=== PATIENT | female | born 1935 | race Caucasian/White ===

== ENCOUNTER 2018-06-30 18:49 | Inpatient (IN) | payer MEDICARE, OTHER ==
[~2018-06-30] VITALS: Ht 157.5 cm; Wt 53.1 kg
--- NOTE | 2018-06-30 19:05 | NUR ---
Patient bib pvt ambulance. Patient AAOx3. Patient speaks in complete sentences, speech is clear. Patient came in for medical clearance for mental health admission. Respiratory even and unlabored. No cardiovascular distress noted, all pulses palpable. No GI/Gu distress. Patient in bed at lowest position, side rails upx2, 2 relatives at bedside. Fall precautions implemented per protocol.
[2018-06-30] MEDS ORDERED: OMEP20TA5 PO (19:18)
[2018-06-30] MEDS ORDERED: ACYC400T PO (19:18)
[2018-06-30] MEDS ORDERED: ERGO2000 PO (19:18)
[2018-06-30] MEDS ORDERED: ACET-2154 PO (19:18)
[2018-06-30] MEDS ORDERED: FERR324T PO (19:18)
[2018-06-30] MEDS ORDERED: LEVO50TA8 PO (19:18)
[2018-06-30] MEDS ORDERED: QUET25TA PO (19:18)
[2018-06-30] MEDS ORDERED: FLUT16SP NS (19:18)
[2018-06-30] MEDS ORDERED: DONE10TA44 PO (19:18)
[2018-06-30] MEDS ORDERED: SACC250C9 PO (19:18)
[2018-06-30] MEDS ORDERED: MULT1TAB73 PO (19:18)
[2018-06-30] MEDS ORDERED: MELA5TAB PO (19:18)
[2018-06-30] MEDS ORDERED: MEMA10TA PO (19:18)
[2018-06-30] MEDS ORDERED: DOCU100C36 PO (19:18)
[2018-06-30] MEDS ORDERED: POLY17PO4 PO (19:18)
[2018-06-30] MEDS ORDERED: PSYL0.5211 PO (19:18)
[2018-06-30] MEDS ORDERED: ONDA4TAB10 PO (19:18)
[2018-06-30] MEDS ORDERED: SODI45SP6 NS (19:18)
[2018-06-30] MEDS ORDERED: ALBU18HF2 IH (19:18)
--- NOTE | 2018-06-30 19:21 | NUR ---
GRANT Barr. Placed call for Crisis Team, Rolando Valencia for evaluation.
--- NOTE | 2018-06-30 21:13 | NUR ---
Report given to Gisselle. Patient in stable condition for transfer.
[2018-06-30] MEDS ORDERED: MAGNESIUM HYDROXIDE 30 ML LIQUID UDC PO PRN (21:15)
[2018-06-30] MEDS ORDERED: MAG HYDROX/AL HYDROX/SIMETH 30 ML LIQUID UDC PO PRN (21:15)
[2018-06-30] MEDS ORDERED: TEMAZEPAM 7.5 MG CAPSULE PO PRN (21:15)
[2018-06-30] MEDS ORDERED: LORAZEPAM 1 MG TABLET PO PRN (21:15)
[2018-06-30] MEDS ORDERED: ACETAMINOPHEN 325 MG TABLET PO PRN (21:15)
--- NOTE | 2018-06-30 21:19 | NUR ---
Patient transfered to MHU, in stable condition.
[2018-06-30 21:32] VITALS: BP 140/76
--- NOTE | 2018-06-30 23:00 | NUR ---
ADMITTED 83 YEARS OLD FEMALE TO [facility] MHU ON A 5150 FOR GD. HOLD WILL END ON 07/03/18 AT 1999. PER HOLD, PATIENT LIVES IN AN ASSISTED LIVING FACILITY CALLED [facility]. SHE WAS TRANSPORTED TO [facility] D/T WORSENING DELUSION, PARANOID IDEATION AND DECLINED IN FOOD INTAKE. ONCE SHE WAS MEDICALLY CLEARED, SHE WAS TRANSPORTED TO [facility] ER FOR ADMISSION TO MHU. UPON ADMISSION, PATIENT WAS CALM AND PLEASANT; SHE WAS ACCOMPANIED BY ANAYELI CHIU WHO PROVIDED ADDITIONAL INFORMATION. FACE TO FACE ASSESSMENT WAS DONE, PATIENT NOTED A/O X 2, ABLE TO AMBULATE WITH STEADY GAIT AND ABLE TO MAKE HER NEEDS KNOWN. UPON INTERVIEW, PATIENT STATED THAT SHE IS HERE BECAUSE SHE HAS A BOYFRIEND THAT SHE IS PLANNING TO HIM BUT HER DAUGHTER DOES NOT BELIEVE HER AND SHE IS UPSET BECAUSE OF THAT. SHE STATED, "MY DAUGHTER TOLD ME THAT I AM TOO OLD TO AND THAT I DON'T HAVE A BOYFRIEND". PER ANAYELI CHIU, PATIENT STARTED WITH PARANOID IDEATION OF A BOYFRIEND AFTER THE WEDDING OF HER GRANDDAUGHTER BACK IN MAY AND IS GOTTEN WORSE. PATIENT REFLECTS WHAT IS ON THE HOLD. HEAD TO TOE ASSESSMENT DONE. MULTIPLE PURPLE DISCOLORATION NOTED IN BOTH ARMS AND RIGHT HAND POSTERIOR ASPECT. POSSIBLE BLOOD DRAWN. PT IS UNDER THE CARE OF DR MOREIRA. WILL CONTINUE TO MONITOR CLOSELY.
[2018-07-01 07:30] VITALS: BP 154/76
--- NOTE | 2018-07-01 12:48 | NUR ---
Initial Discharge Instructions: Patient is a current resident of [facility] [Address: [address], [place] [address]; ]. Spoke with patient's daughter, Sandy Russ ([phone]) who states she would like her mother to return there upon discharge. Per daughter, she is unsure if pt will need Memory Care unit upon discharge, but reports that they have a room reserved for her at [facility]. Spoke with RNMarlene at [facility] who states that the patient is welcome back upon discharge. Per Marlene, a Physician's Report and an in-person assessment must be completed prior to discharge. SW will continue to collaborate with pt, family, and MD regarding most appropriate discharge plans for the patient. SW will form a safe and proper discharge.
--- NOTE | 2018-07-01 14:45 | NUR ---
Gps/Cash Reconciliation Specialist- Patient threw thrash can towards the LIBRARY SERVICES COORDINATOR when she was trying to open the door from her room. Confused, trying to reorient patient, informed she is in the Hosp. (MHU).patient thinks she in in her home. Patient kept closing her door, discouraged from doing so. Patient wants her door closed because veryone comes to bother her per. pt. Monitored closely for safety and needs. Offered ativan 1 mg po, pt. refused, claimed she will not take any medication from the staff.
--- NOTE | 2018-07-01 15:44 | NUR ---
Gps/Lock And Dam Repairer- Patient remains in her room, sitting at the edge of the bed, encouraged participation in her group therapy, refused to get out of her room. Confused, reoriented to time and place.
[2018-07-01 16:00] VITALS: BP 117/72
[2018-07-01] MEDS ORDERED: LORAZEPAM 0.5 MG TABLET PO PRN (16:00)
[2018-07-01] MEDS ORDERED: ACYCLOVIR 400 MG TABLET PO SCH (17:45)
[2018-07-01] MEDS ORDERED: ALBUTEROL SULFATE 8 GM HFA.AER.AD IH PRN (17:45)
[2018-07-01] MEDS ORDERED: NORMAL SALINE NASAL 45 ML BOTTLE NS PRN (17:45)
[2018-07-01] MEDS ORDERED: ALBUTEROL SULFATE 2.5 MG/3 ML NEBU NEB PRN (18:00)
[2018-07-01] MEDS: FERROUS GLUCONATE 324 MG TABLET PO SCH (18:00)
--- NOTE | 2018-07-01 18:51 | NUR ---
Gps/Tnt Line Supervisor- Unable to administer routine Ferrous gluconate new order, not available in the unit, will follow up. Family in to visit. Daughter informed of the behavior this pm. , continue to monitor behavior.Instructed not to close her door.
--- NOTE | 2018-07-01 19:36 | NUR ---
Received patient lying in bed in room, calm. Noted per day shift nurse, patient has stayed in her room all day and refused to participate in group activities. Noted patient calm and interacts when talked to. Bed in low position, locked. Noise and lights subdued.
[2018-07-01 20:05] VITALS: BP 131/64
[2018-07-01] MEDS: MELATONIN 3 MG TABLET PO SCH (20:34)
[2018-07-01] MEDS: CULTURELLE CAPSULE PO SCH (20:34)
[2018-07-01] MEDS: ACYCLOVIR 200 MG CAPSULE PO SCH (20:36)
--- NOTE | 2018-07-02 05:38 | NUR ---
Patient slept well throughout the night. Patient pleasant upon approach compliant in taking medications and care. No complaints made. Attended all needs. Ensured safety and comfort.
[2018-07-02] MEDS: LEVOTHYROXINE SODIUM 50 MCG TABLET PO SCH (06:18)
[2018-07-02] MEDS: PANTOPRAZOLE SODIUM 40 MG TABLET.DR PO SCH (06:18)
[2018-07-02 07:27] LABS: BASOPHILS % (AUTO) 0.4 % (0.0-2.0); EOSINOPHILS # (AUTO) 0.1 K/uL (0.0-0.7); EOSINOPHILS % (AUTO) 1.4 % (0.0-7.0); HEMOGLOBIN 12.5 g/dL (10.9-14.3); LYMPHOCYTES # (AUTO) 0.9 K/uL (20.0-40.0); LYMPHOCYTES % (AUTO) 16.9 % (20.5-51.5); MEAN CORPUSCULAR HEMOGLOBIN 32.6 uug (24.7-32.8); MEAN CORPUSCULAR HGB CONC 34 g/dL (32.3-35.6); MEAN CORPUSCULAR VOLUME 96.7 fL (75.5-95.3); MONOCYTES % (AUTO) 18.7 % (0.0-11.0); NEUTROPHILS # (AUTO) 3.5 K/uL (1.8-8.9); NEUTROPHILS % (AUTO) 62.6 % (38.5-71.5); PLATELET COUNT (AUTO) 205 K/uL (179-408); RED BLOOD CELL COUNT(AUTO) 3.82 MIL/uL (3.63-4.92); WHITE BLOOD COUNT (AUTO) 5.5 K/uL (3.8-11.8)
[2018-07-02 07:30] VITALS: BP 106/63
[2018-07-02 07:35] LABS: CARBON DIOXIDE 27 mmol/L (21-32); CHLORIDE 102 mmol/L (98-107); CREATININE 0.8 mg/dL (0.6-1.3); GLUCOSE 89 mg/dL (74-106); POTASSIUM 3.9 mmol/L (3.5-5.1); UREA NITROGEN, BLOOD 20 mg/dL (7-18)
[2018-07-02] MEDS: FLUTICASONE PROP NASAL SPRAY 16 GM BOTTLE NS SCH (08:07)
[2018-07-02] MEDS: risperiDONE 0.5 MG TABLET PO SCH ×2 (08:07→20:00)
[2018-07-02] MEDS: DOCUSATE SODIUM 100 MG CAPSULE PO SCH ×2 (08:07→16:13)
[2018-07-02] MEDS: FERROUS GLUCONATE 324 MG TABLET PO SCH ×2 (08:07→17:54)
[2018-07-02] MEDS: RIVASTIGMINE TARTRATE 1.5 MG CAPSULE PO SCH ×2 (08:08→20:00)
[2018-07-02] MEDS: MULTIVITAMINS,THERAPEUTIC TABLET PO SCH (08:08)
[2018-07-02] MEDS: ACETAMINOPHEN 325 MG TABLET PO SCH ×3 (08:08→16:13)
[2018-07-02] MEDS: CHOLECALCIFEROL 1,000 UNIT TABLET PO SCH (08:10)
[2018-07-02] MEDS: CULTURELLE CAPSULE PO SCH ×2 (08:11→20:00)
[2018-07-02] MEDS: ACYCLOVIR 200 MG CAPSULE PO SCH ×2 (08:11→20:00)
[2018-07-02] MEDS: PSYLLIUM SEED PACKET PO SCH (08:12)
--- NOTE | 2018-07-02 08:52 | NUR ---
Patient pleasant upon approach and compliant in taking medications this am. Attended all needs. Ensured safety and comfort.
[2018-07-02 09:46] LABS: LYMPHOCYTES % (MANUAL) 18 % (20-40)
[2018-07-02 09:47] LABS: MONOCYTES % (MANUAL) 17 % (2-10); NEUTROPHILS % (MANUAL) 65 % (42-75)
--- NOTE | 2018-07-02 10:21 | NUR ---
Received a clinical review request via fax from Birgit De La Garza from [facility], F:[phone], no direct number noted. Clinicals faxed as requested [ER notes, H&P, labs and meds list] to support admission.
[2018-07-02 11:00] LABS: *BILIRUBIN,URIN 1+ (NEGATIVE); *BLOOD, URINE NEGATIVE (NEGATIVE); *CLARITY,URINE CLEAR (CLEAR); *COLOR,URINE YELLOW (YELLOW); *KETONES,URINE TRACE (NEGATIVE); *UROBILINOGEN,URINE 0.2 E.U./dl (NORMAL); LEUKOCYTE ESTERASE ,URINE 1+ (NEGATIVE); NITRITE, URINE NEGATIVE (NEGATIVE); PH,URINE 5.5 (5.0-8.0); UGLUCOSE NEGATIVE (NEGATIVE)
[2018-07-02 11:06] LABS: BACTERIA,URINE FEW /HPF (NONE SEEN); RBC,URINE NONE SEEN /HPF (0-3); SQUAMOUS EPITHELIAL CELL,UR MODERATE /HPF (NONE SEEN); WBC,URINE 0-3 /HPF (0-3)
[2018-07-02 17:36] VITALS: BP 146/72
--- NOTE | 2018-07-02 17:36 | NUR ---
PATIENT IS COMPLIANT WITH MEDICATIONS, VERY ISOLATED TODAY, DOESN'T WANT TO TALK. PER FAMILY STATEMENT:" PATIENT IS HEARING VOICE OF HER WHO 1,5 YO AND HE TELLS HER TO GET OUT OF HERE, IF SHE WONT LEAVE, SHE WILL STAY HERE FOREVER". NO SUICIDAL IDEATIONS OR ATTEMPTS TODAY. PATIENT ATE SANDWICH WITH FAMILY AROUND 1600 PATIENT TOOK A SHOWER AND CHANGED CLOTHES. SAFETY MAINTAINED THIS SHIFT
[2018-07-02] MEDS: MELATONIN 3 MG TABLET PO SCH (20:00)
[2018-07-03] MEDS: LEVOTHYROXINE SODIUM 50 MCG TABLET PO SCH (06:01)
[2018-07-03] MEDS: PANTOPRAZOLE SODIUM 40 MG TABLET.DR PO SCH (06:01)
[2018-07-03 07:30] VITALS: BP 151/57
[2018-07-03] MEDS: FLUTICASONE PROP NASAL SPRAY 16 GM BOTTLE NS SCH (08:56)
[2018-07-03] MEDS: DOCUSATE SODIUM 100 MG CAPSULE PO SCH ×2 (08:56→17:13)
[2018-07-03] MEDS: FERROUS GLUCONATE 324 MG TABLET PO SCH ×2 (08:56→17:13)
[2018-07-03] MEDS: CULTURELLE CAPSULE PO SCH ×2 (08:57→20:40)
[2018-07-03] MEDS: RIVASTIGMINE TARTRATE 1.5 MG CAPSULE PO SCH ×2 (08:57→20:40)
[2018-07-03] MEDS: PSYLLIUM SEED PACKET PO SCH (08:57)
[2018-07-03] MEDS: ACETAMINOPHEN 325 MG TABLET PO SCH ×3 (08:57→17:13)
[2018-07-03] MEDS: risperiDONE 0.5 MG TABLET PO SCH ×2 (08:57→20:40)
[2018-07-03] MEDS: MULTIVITAMINS,THERAPEUTIC TABLET PO SCH (08:57)
[2018-07-03] MEDS: CHOLECALCIFEROL 1,000 UNIT TABLET PO SCH (08:58)
[2018-07-03] MEDS: ACYCLOVIR 200 MG CAPSULE PO SCH ×2 (08:58→20:39)
--- NOTE | 2018-07-03 18:45 | NUR ---
End of Shift report: Patient alert and oriented, compliant with medications and nursing care. Patient isolated throughout the morning. Safety checks implemented. Denies SI/HI/AH/VH to staff. Family visited today, she verbalized to them that she is still having auditory hallucinations but denies to staff.
[2018-07-03] MEDS: MELATONIN 3 MG TABLET PO SCH (20:39)
[2018-07-03 21:27] VITALS: BP 131/47
--- NOTE | 2018-07-04 00:11 | NUR ---
slept well most of the shift. needs attended. kept comfortable. no acute distress noted, VSS. compliant with meds..VSS,
[2018-07-04] MEDS: PANTOPRAZOLE SODIUM 40 MG TABLET.DR PO SCH (06:26)
[2018-07-04] MEDS: LEVOTHYROXINE SODIUM 50 MCG TABLET PO SCH (06:26)
[2018-07-04 07:30] VITALS: BP 156/64
[2018-07-04] MEDS: FERROUS GLUCONATE 324 MG TABLET PO SCH ×3 (08:00→17:40)
[2018-07-04] MEDS: RIVASTIGMINE TARTRATE 1.5 MG CAPSULE PO SCH ×3 (08:31→21:11)
[2018-07-04] MEDS: DOCUSATE SODIUM 100 MG CAPSULE PO SCH ×3 (08:31→17:00)
[2018-07-04] MEDS: CHOLECALCIFEROL 1,000 UNIT TABLET PO SCH ×2 (08:31→08:50)
[2018-07-04] MEDS: MULTIVITAMINS,THERAPEUTIC TABLET PO SCH ×2 (08:31→08:49)
[2018-07-04] MEDS: CULTURELLE CAPSULE PO SCH ×3 (08:32→21:09)
[2018-07-04] MEDS: ACYCLOVIR 200 MG CAPSULE PO SCH ×3 (08:32→21:11)
[2018-07-04] MEDS: risperiDONE 0.5 MG TABLET PO SCH ×3 (08:32→21:09)
[2018-07-04] MEDS: PSYLLIUM SEED PACKET PO SCH ×2 (08:32→08:49)
[2018-07-04] MEDS: ACETAMINOPHEN 325 MG TABLET PO SCH ×4 (08:32→16:57)
[2018-07-04] MEDS: FLUTICASONE PROP NASAL SPRAY 16 GM BOTTLE NS SCH ×2 (08:33→08:49)
--- NOTE | 2018-07-04 08:50 | NUR ---
Patient is AO2-3, no distress Patient has pleasant mood and was willing to take medications, Then she decided to spit medications out of her mouth and stated " I can hear your thoughts and you just thought that they not really my medications. I have special gee and can read people's mind". She become very isolative and said to leave her along. I explained benefits of the medications but she didn't want hear anything just wanted to be along.
--- NOTE | 2018-07-04 12:13 | NUR ---
UR Note: JACQUELINE called and gave verbal clinicals to [employer] Injection Wax Molder, Stacey (ph. [phone] [id number]). AUTH# [id number]. Awaiting further authorization. JACQUELINE will continue to follow-up.
--- NOTE | 2018-07-04 13:02 | NUR ---
Family member asked about Aricept medication if we giving it to the patient. We dont have any information about this med from [facility] Contacted linen room houseperson doctor to follow up Waiting for call back
[2018-07-04 16:51] VITALS: BP 137/84
[2018-07-04 20:34] VITALS: BP 135/64
[2018-07-04] MEDS: MELATONIN 3 MG TABLET PO SCH (21:10)
--- NOTE | 2018-07-04 22:25 | NUR ---
resting in bed. calm and cooperative with care. no signs of restlessness or agitation noted. OOB to the BR with walker. Voiding well. denies any pain nor any discomfort. compliant with meds. slept early. VSS. No behavioral issues noted. Fall precautions maintained. siderails up for safety.
[2018-07-05] MEDS: PANTOPRAZOLE SODIUM 40 MG TABLET.DR PO SCH (06:23)
[2018-07-05] MEDS: LEVOTHYROXINE SODIUM 50 MCG TABLET PO SCH (06:23)
[2018-07-05] MEDS: DOCUSATE SODIUM 100 MG CAPSULE PO SCH ×2 (08:39→16:35)
[2018-07-05] MEDS: MULTIVITAMINS,THERAPEUTIC TABLET PO SCH (08:39)
[2018-07-05] MEDS: CULTURELLE CAPSULE PO SCH ×2 (08:39→21:03)
[2018-07-05] MEDS: RIVASTIGMINE TARTRATE 1.5 MG CAPSULE PO SCH ×2 (08:39→21:00)
[2018-07-05] MEDS: ACYCLOVIR 200 MG CAPSULE PO SCH ×2 (08:39→21:04)
[2018-07-05] MEDS: risperiDONE 0.5 MG TABLET PO SCH ×2 (08:39→21:00)
[2018-07-05] MEDS: PSYLLIUM SEED PACKET PO SCH (08:40)
[2018-07-05] MEDS: ACETAMINOPHEN 325 MG TABLET PO SCH ×3 (08:40→16:35)
[2018-07-05] MEDS: FLUTICASONE PROP NASAL SPRAY 16 GM BOTTLE NS SCH (08:40)
[2018-07-05] MEDS: FERROUS GLUCONATE 324 MG TABLET PO SCH ×2 (08:40→17:36)
[2018-07-05] MEDS: CHOLECALCIFEROL 1,000 UNIT TABLET PO SCH (09:04)
[2018-07-05 09:55] VITALS: BP 147/59
--- NOTE | 2018-07-05 12:41 | NUR ---
received patient awake on bed, patient took her pills, in the morning, seen swallow medicine, upon making rounds in at lunch time, found the medicine in the morning she vomitted in the tissue paper, patient increasingly paranoid, and hears voices that telling her that somebody will pick her up , daughter visited at lunch time, will continue monitor
--- NOTE | 2018-07-05 12:53 | NUR ---
UR NOTE: mold worker received voicemail from [employer] Rolling Machine Operator, Stacey (ph. [phone]), stating that patient was authorized 3 additional days with next review on July 06, 2018. AUTH# [id number].
--- NOTE | 2018-07-05 15:05 | NUR ---
Discharge planning: workers' compensation mediator faxed physicians report to Marlene, clinical transplant coordinator, at [facility] [[address], [place] [address]; ]. workers' compensation mediator received successful fax return. workers' compensation mediator then called and spoke with Marlene regarding patient returning to facility. Per Marlene, she would like to assess patient prior to her returning and states she will try to come and assess her this afternoon. Marlene further stated that if she is unable to assess patient, that patient is able to return without re-assessment when ready. Marlene is requesting that patient be discharged with a signed medication list. workers' compensation mediator assured Marlene that patient will be discharged with all necessary paperwork.
[2018-07-05 16:02] VITALS: BP 108/45
--- NOTE | 2018-07-05 18:00 | NUR ---
patient remains isolative and withdrawn, patient would walk towards the door and stays but redirectible, patient visited by daughter, patient ate 10-15% of meal in dinner, will continue monitor
[2018-07-05 19:10] LABS: *BLOOD, URINE NEGATIVE (NEGATIVE); *CLARITY,URINE SLIGHTLY CLOUDY (CLEAR); *COLOR,URINE YELLOW (YELLOW); *KETONES,URINE 2+ (NEGATIVE); *UROBILINOGEN,URINE 0.2 E.U./dl (NORMAL); LEUKOCYTE ESTERASE ,URINE NEGATIVE (NEGATIVE); NITRITE, URINE NEGATIVE (NEGATIVE); PH,URINE 5.5 (5.0-8.0); UGLUCOSE NEGATIVE (NEGATIVE)
[2018-07-05 19:16] LABS: *BILIRUBIN,URIN 2+ (NEGATIVE)
[2018-07-05 19:22] LABS: BACTERIA,URINE NONE SEEN /HPF (NONE SEEN); RBC,URINE 0-3 /HPF (0-3); SQUAMOUS EPITHELIAL CELL,UR MODERATE /HPF (NONE SEEN)
[2018-07-05 20:32] VITALS: BP 140/52
[2018-07-05] MEDS: MELATONIN 3 MG TABLET PO SCH (21:00)
[2018-07-06] MEDS: LEVOTHYROXINE SODIUM 50 MCG TABLET PO SCH (06:08)
[2018-07-06] MEDS: PANTOPRAZOLE SODIUM 40 MG TABLET.DR PO SCH (06:08)
--- NOTE | 2018-07-06 06:20 | NUR ---
GPS: Remain calm and cooperative with medications and care. slept 8 hrs through the night. resting in bed comfortably. continue plan of care.
[2018-07-06 07:30] VITALS: BP 149/59
[2018-07-06] MEDS: FLUTICASONE PROP NASAL SPRAY 16 GM BOTTLE NS SCH (09:24)
[2018-07-06] MEDS: ACYCLOVIR 200 MG CAPSULE PO SCH ×2 (09:24→21:04)
[2018-07-06] MEDS: MULTIVITAMINS,THERAPEUTIC TABLET PO SCH (09:24)
[2018-07-06] MEDS: DOCUSATE SODIUM 100 MG CAPSULE PO SCH ×2 (09:25→17:37)
[2018-07-06] MEDS: RIVASTIGMINE TARTRATE 1.5 MG CAPSULE PO SCH ×2 (09:25→21:04)
[2018-07-06] MEDS: risperiDONE 0.5 MG TABLET PO SCH (09:25)
[2018-07-06] MEDS: ACETAMINOPHEN 325 MG TABLET PO SCH ×3 (09:25→17:37)
[2018-07-06] MEDS: CHOLECALCIFEROL 1,000 UNIT TABLET PO SCH (09:25)
[2018-07-06] MEDS: PSYLLIUM SEED PACKET PO SCH (09:26)
[2018-07-06] MEDS: FERROUS GLUCONATE 324 MG TABLET PO SCH ×2 (09:26→17:37)
[2018-07-06] MEDS: CULTURELLE CAPSULE PO SCH ×2 (09:28→21:04)
--- NOTE | 2018-07-06 12:15 | NUR ---
UR Note: JACQUELINE called and gave verbal clinicals to [employer] Commercial Fisher, Stacey (ph. [phone] [id number]). AUTH# [id number]. Awaiting further authorization. JACQUELINE will continue to follow-up.
--- NOTE | 2018-07-06 14:31 | NUR ---
Process Group: Patients were asked to reflect and respond to the question "If you could change one things about yourself, what would it be and why?" Subjective: "No, I am not feeling well" Objective: Patient chose not to attend group. Patient observed laying in bed with anxious mood with flat affect. Assessment: Patient remains isolative and withdrawn. Plan: Encourage group attendance as scheduled. pit crew support worker will continue to encourage patient to interact with peers and choose less isolating activities.
[2018-07-06 16:00] VITALS: BP 99/52
[2018-07-06] MEDS: MELATONIN 3 MG TABLET PO SCH (21:04)
[2018-07-06] MEDS: risperiDONE 1 MG/ML UDC PO SCH (21:04)
[2018-07-06 21:05] VITALS: BP 123/65
[2018-07-06] MEDS: MIRTAZAPINE 15 MG TABLET PO SCH (21:05)
[2018-07-07] MEDS: LEVOTHYROXINE SODIUM 50 MCG TABLET PO SCH (06:09)
[2018-07-07] MEDS: PANTOPRAZOLE SODIUM 40 MG TABLET.DR PO SCH (06:09)
[2018-07-07 07:30] VITALS: BP 160/57
[2018-07-07] MEDS: DOCUSATE SODIUM 100 MG CAPSULE PO SCH ×2 (09:43→17:00)
[2018-07-07] MEDS: CULTURELLE CAPSULE PO SCH ×2 (09:43→20:51)
[2018-07-07] MEDS: RIVASTIGMINE TARTRATE 1.5 MG CAPSULE PO SCH ×2 (09:43→20:52)
[2018-07-07] MEDS: FERROUS GLUCONATE 324 MG TABLET PO SCH ×2 (09:43→17:38)
[2018-07-07] MEDS: MULTIVITAMINS,THERAPEUTIC TABLET PO SCH (09:44)
[2018-07-07] MEDS: ACYCLOVIR 200 MG CAPSULE PO SCH ×2 (09:44→20:53)
[2018-07-07] MEDS: CHOLECALCIFEROL 1,000 UNIT TABLET PO SCH (09:44)
[2018-07-07] MEDS: PSYLLIUM SEED PACKET PO SCH (09:44)
[2018-07-07] MEDS: ACETAMINOPHEN 325 MG TABLET PO SCH ×3 (09:44→17:38)
[2018-07-07] MEDS: risperiDONE 1 MG/ML UDC PO SCH ×2 (09:44→20:52)
[2018-07-07] MEDS: FLUTICASONE PROP NASAL SPRAY 16 GM BOTTLE NS SCH (09:45)
--- NOTE | 2018-07-07 12:20 | NUR ---
UR Note: JACQUELINE received call from [employer] Roll Examiner, Stacey (ph. [phone] [id number]). Patient authorized an additional 4 days (07/07/18-07/10/18) with review due on 07/11/18. AUTH# [id number]. Awaiting further authorization. JACQUELINE will continue to follow-up.
[2018-07-07 16:00] VITALS: BP 108/41
--- NOTE | 2018-07-07 18:02 | NUR ---
Gps/Server Assistant- Remains sitting up by her door, refusing to eat, claimed she 's waiting for her daughter to pick her up. Informed and reminded that her daughter was in today at lunch time, and we reviewed her medications. Patient she does not remember her daughter coming to visit her today.Poor intake encouraged to drink her supplement.Bladder incontinence noted, strong odor.
[2018-07-07 20:00] VITALS: BP 136/61
[2018-07-07] MEDS: MELATONIN 3 MG TABLET PO SCH (20:51)
[2018-07-07] MEDS: MIRTAZAPINE 15 MG TABLET PO SCH (20:52)
[2018-07-08] MEDS: PANTOPRAZOLE SODIUM 40 MG TABLET.DR PO SCH (06:06)
[2018-07-08] MEDS: LEVOTHYROXINE SODIUM 50 MCG TABLET PO SCH (06:06)
[2018-07-08 07:30] VITALS: BP 135/57
[2018-07-08] MEDS: FERROUS GLUCONATE 324 MG TABLET PO SCH ×2 (08:31→17:10)
[2018-07-08] MEDS: CHOLECALCIFEROL 1,000 UNIT TABLET PO SCH (08:31)
[2018-07-08] MEDS: MULTIVITAMINS,THERAPEUTIC TABLET PO SCH (08:31)
[2018-07-08] MEDS: FLUTICASONE PROP NASAL SPRAY 16 GM BOTTLE NS SCH (08:31)
[2018-07-08] MEDS: CULTURELLE CAPSULE PO SCH ×2 (08:31→20:38)
[2018-07-08] MEDS: RIVASTIGMINE TARTRATE 1.5 MG CAPSULE PO SCH ×2 (08:31→20:37)
[2018-07-08] MEDS: ACETAMINOPHEN 325 MG TABLET PO SCH ×3 (08:31→16:59)
[2018-07-08] MEDS: ACYCLOVIR 200 MG CAPSULE PO SCH ×2 (08:32→20:38)
[2018-07-08] MEDS: risperiDONE 1 MG/ML UDC PO SCH ×2 (08:33→20:38)
[2018-07-08] MEDS: PSYLLIUM SEED PACKET PO SCH (08:33)
[2018-07-08] MEDS: DOCUSATE SODIUM 100 MG CAPSULE PO SCH ×2 (08:33→17:00)
[2018-07-08 16:00] VITALS: BP 122/47
--- NOTE | 2018-07-08 17:00 | NUR ---
Gps/Powerhouse Electrician- Had been quiet most of the day, staying in her room sitting on her chair, encouraged attending her group therapy, refused, claimed she will be going home soon. Daughter was in the visit this pm, was informed their scrabble game was put inside the pt's locker, and instructed family to let staff know what they bring to the patient(check contraband). Reviewed medications , per daughter request. Patient awake , not interactive.
[2018-07-08 20:28] VITALS: BP 120/50
[2018-07-08] MEDS: MELATONIN 3 MG TABLET PO SCH (20:38)
[2018-07-08] MEDS: MIRTAZAPINE 15 MG TABLET PO SCH (20:38)
[2018-07-09] MEDS: LEVOTHYROXINE SODIUM 50 MCG TABLET PO SCH (06:03)
[2018-07-09] MEDS: PANTOPRAZOLE SODIUM 40 MG TABLET.DR PO SCH (06:03)
[2018-07-09 07:30] VITALS: BP 131/48
[2018-07-09 07:55] LABS: BASOPHILS % (AUTO) 0.4 % (0.0-2.0); EOSINOPHILS # (AUTO) 0.1 K/uL (0.0-0.7); EOSINOPHILS % (AUTO) 1.9 % (0.0-7.0); HEMATOCRIT 35.1 % (31.2-41.9); HEMOGLOBIN 11.9 g/dL (10.9-14.3); LYMPHOCYTES # (AUTO) 1.4 K/uL (20.0-40.0); LYMPHOCYTES % (AUTO) 18.2 % (20.5-51.5); MEAN CORPUSCULAR HEMOGLOBIN 32.9 uug (24.7-32.8); MEAN CORPUSCULAR HGB CONC 34 g/dL (32.3-35.6); MEAN CORPUSCULAR VOLUME 96.8 fL (75.5-95.3); MONOCYTES # (AUTO) 0.9 K/uL (2.0-10.0); MONOCYTES % (AUTO) 11.8 % (0.0-11.0); NEUTROPHILS # (AUTO) 5.1 K/uL (1.8-8.9); NEUTROPHILS % (AUTO) 67.7 % (38.5-71.5); PLATELET COUNT (AUTO) 235 K/uL (179-408); RED BLOOD CELL COUNT(AUTO) 3.62 MIL/uL (3.63-4.92); WHITE BLOOD COUNT (AUTO) 7.5 K/uL (3.8-11.8)
[2018-07-09 08:07] LABS: CARBON DIOXIDE 32 mmol/L (21-32); CHLORIDE 101 mmol/L (98-107); GLUCOSE 84 mg/dL (74-106); POTASSIUM 3.8 mmol/L (3.5-5.1); UREA NITROGEN, BLOOD 32 mg/dL (7-18)
[2018-07-09 08:18] LABS: THYROID STIMULATING HORMONE 2.717 mIU/mL (0.358-3.740)
[2018-07-09] MEDS: ACETAMINOPHEN 325 MG TABLET PO SCH ×3 (08:21→17:04)
[2018-07-09] MEDS: ACYCLOVIR 200 MG CAPSULE PO SCH ×2 (08:22→20:29)
[2018-07-09] MEDS: FERROUS GLUCONATE 324 MG TABLET PO SCH ×2 (08:22→17:04)
[2018-07-09] MEDS: risperiDONE 1 MG/ML UDC PO SCH ×2 (08:22→20:29)
[2018-07-09] MEDS: MULTIVITAMINS,THERAPEUTIC TABLET PO SCH (08:22)
[2018-07-09] MEDS: CULTURELLE CAPSULE PO SCH ×2 (08:22→20:29)
[2018-07-09] MEDS: CHOLECALCIFEROL 1,000 UNIT TABLET PO SCH (08:22)
[2018-07-09] MEDS: PSYLLIUM SEED PACKET PO SCH (08:22)
[2018-07-09] MEDS: RIVASTIGMINE TARTRATE 1.5 MG CAPSULE PO SCH ×2 (08:22→20:30)
[2018-07-09] MEDS: DOCUSATE SODIUM 100 MG CAPSULE PO SCH ×2 (08:23→17:00)
[2018-07-09] MEDS: FLUTICASONE PROP NASAL SPRAY 16 GM BOTTLE NS SCH (08:57)
[2018-07-09 15:23] VITALS: BP 101/44
[2018-07-09 20:00] VITALS: BP 125/51
[2018-07-09] MEDS: MELATONIN 3 MG TABLET PO SCH (20:29)
[2018-07-09] MEDS: MIRTAZAPINE 15 MG TABLET PO SCH (20:30)
[2018-07-10] MEDS: PANTOPRAZOLE SODIUM 40 MG TABLET.DR PO SCH (06:15)
[2018-07-10] MEDS: LEVOTHYROXINE SODIUM 50 MCG TABLET PO SCH (06:15)
[2018-07-10 08:30] VITALS: BP 114/56
[2018-07-10] MEDS: risperiDONE 1 MG/ML UDC PO SCH ×2 (08:41→20:18)
[2018-07-10] MEDS: PSYLLIUM SEED PACKET PO SCH (08:42)
[2018-07-10] MEDS: CHOLECALCIFEROL 1,000 UNIT TABLET PO SCH (08:42)
[2018-07-10] MEDS: MULTIVITAMINS,THERAPEUTIC TABLET PO SCH (08:42)
[2018-07-10] MEDS: FLUTICASONE PROP NASAL SPRAY 16 GM BOTTLE NS SCH (08:42)
[2018-07-10] MEDS: CULTURELLE CAPSULE PO SCH ×2 (08:42→20:19)
[2018-07-10] MEDS: FERROUS GLUCONATE 324 MG TABLET PO SCH ×2 (08:42→17:49)
[2018-07-10] MEDS: RIVASTIGMINE TARTRATE 1.5 MG CAPSULE PO SCH ×2 (08:42→20:19)
[2018-07-10] MEDS: ACYCLOVIR 200 MG CAPSULE PO SCH ×2 (08:42→20:19)
[2018-07-10] MEDS: DOCUSATE SODIUM 100 MG CAPSULE PO SCH ×2 (08:43→17:00)
[2018-07-10] MEDS: ACETAMINOPHEN 325 MG TABLET PO SCH ×3 (09:00→17:49)
--- NOTE | 2018-07-10 12:47 | NUR ---
Gps/Assistant Professor Of Geography- had been compliant with routine medications, poor dietary intake, but drinks her ensure supplement.Ambulates around with front wheel walker, tends to stand next to the front door, claimed still waiting for her daughter to pick her up. Offered to call her daughter on the phone, pt. refused.Reoriented to time and place , safety reviewed and emphasized.
[2018-07-10 15:56] VITALS: BP 161/60
[2018-07-10] MEDS: MIRTAZAPINE 15 MG TABLET PO SCH (20:19)
[2018-07-10] MEDS: MELATONIN 3 MG TABLET PO SCH (20:19)
[2018-07-10 20:55] VITALS: BP 118/60
[2018-07-11] MEDS: LEVOTHYROXINE SODIUM 50 MCG TABLET PO SCH (06:23)
[2018-07-11] MEDS: PANTOPRAZOLE SODIUM 40 MG TABLET.DR PO SCH (06:23)
[2018-07-11 07:30] VITALS: BP 102/51
[2018-07-11] MEDS: RIVASTIGMINE TARTRATE 1.5 MG CAPSULE PO SCH ×2 (08:32→20:36)
[2018-07-11] MEDS: MULTIVITAMINS,THERAPEUTIC TABLET PO SCH (08:32)
[2018-07-11] MEDS: CULTURELLE CAPSULE PO SCH ×2 (08:33→20:36)
[2018-07-11] MEDS: ACETAMINOPHEN 325 MG TABLET PO SCH ×3 (08:33→17:00)
[2018-07-11] MEDS: CHOLECALCIFEROL 1,000 UNIT TABLET PO SCH (08:33)
[2018-07-11] MEDS: DOCUSATE SODIUM 100 MG CAPSULE PO SCH ×2 (08:33→17:00)
[2018-07-11] MEDS: FLUTICASONE PROP NASAL SPRAY 16 GM BOTTLE NS SCH (08:34)
[2018-07-11] MEDS: FERROUS GLUCONATE 324 MG TABLET PO SCH ×2 (08:34→17:00)
[2018-07-11] MEDS: PSYLLIUM SEED PACKET PO SCH (08:34)
[2018-07-11] MEDS: ACYCLOVIR 200 MG CAPSULE PO SCH ×2 (08:34→20:36)
[2018-07-11] MEDS: risperiDONE 1 MG/ML UDC PO SCH ×2 (08:35→20:36)
--- NOTE | 2018-07-11 11:20 | NUR ---
UR Note: room worker called and gave verbal clinicals to [employer] Packing House Laborer, Stacey (ph. [phone] [id number]). AUTH# [id number]. Awaiting further authorization. room worker will continue to follow-up. Addendum: 07/11/18 at 1608 by EMILIO JOHNSON Additional information: room worker received call back from Stacey stating patient has been authorized three additional days with review due on July 13, 2018.
[2018-07-11 16:07] VITALS: BP 115/49
[2018-07-11] MEDS: MEGESTROL ACETATE 20 MG TABLET PO SCH (17:00)
--- NOTE | 2018-07-11 18:32 | NUR ---
RECEIVED PATIENT AWAKE ON BED, PATIENT HAS POOR PO INTAKE , PATIENT REMAINS ISOLATIVE AND WITHDRAWN, PATIENT COMPLIANT TO MEDICATION, DENIES SI, AND HI, STARTED ON MEGACE FOR APPETITE STIMULANT ORDERED
[2018-07-11 19:56] VITALS: BP 118/74
[2018-07-11] MEDS: MIRTAZAPINE 15 MG TABLET PO SCH (20:37)
[2018-07-11] MEDS: MELATONIN 3 MG TABLET PO SCH (20:37)
[2018-07-12] MEDS: PANTOPRAZOLE SODIUM 40 MG TABLET.DR PO SCH (06:42)
[2018-07-12] MEDS: LEVOTHYROXINE SODIUM 50 MCG TABLET PO SCH (06:42)
[2018-07-12 07:30] VITALS: BP 140/44
[2018-07-12] MEDS: FERROUS GLUCONATE 324 MG TABLET PO SCH ×2 (08:19→17:11)
[2018-07-12] MEDS: DOCUSATE SODIUM 100 MG CAPSULE PO SCH ×2 (08:19→16:54)
[2018-07-12] MEDS: CHOLECALCIFEROL 1,000 UNIT TABLET PO SCH (08:19)
[2018-07-12] MEDS: CULTURELLE CAPSULE PO SCH ×2 (08:20→21:08)
[2018-07-12] MEDS: MEGESTROL ACETATE 20 MG TABLET PO SCH ×2 (08:20→16:54)
[2018-07-12] MEDS: RIVASTIGMINE TARTRATE 1.5 MG CAPSULE PO SCH ×2 (08:20→21:08)
[2018-07-12] MEDS: ACYCLOVIR 200 MG CAPSULE PO SCH ×2 (08:20→21:08)
[2018-07-12] MEDS: risperiDONE 1 MG/ML UDC PO SCH (08:20)
[2018-07-12] MEDS: ACETAMINOPHEN 325 MG TABLET PO SCH ×3 (08:20→16:54)
[2018-07-12] MEDS: MULTIVITAMINS,THERAPEUTIC TABLET PO SCH (08:20)
[2018-07-12] MEDS: FLUTICASONE PROP NASAL SPRAY 16 GM BOTTLE NS SCH (08:21)
[2018-07-12] MEDS: PSYLLIUM SEED PACKET PO SCH (08:21)
--- NOTE | 2018-07-12 13:42 | NUR ---
Discharge Planning: At 1315: JACQUELINE placed call to [facility] (ph. [phone]) and spoke with Nancy in nursing to inform her that patient is likely going to be discharging tomorrow (07/13/18). JACQUELINE inquired is Marlene was available, and was told that she is on vacation. Per Nancy, SW to fax Physician's Report and signed medication list to f. [phone]. At 1330: JACQUELINE placed call to patient's daughter, Sandy Alford ([phone]) to inform her of patient's discharge. Pt's daughter expressed concern and disagreement with the discharge plan. Daughter stated that pt is "not ready" to be discharged. Sandy reported that she has been coming to see the patient every day since she was admitted, "and she still won't eat and has shown no improvement." Pt's daughter inquired about the "markers" that Dr. Whittaker looks for when discharging a patient and asked that he give her a call. JACQUELINE informed Dr. Whittaker. Pt's daughter then expressed that she plans to file an appeal with Medicare when she and this senior underwriter hang up. JACQUELINE provided her with [employer] (ph. [phone]) and informed her that she will be served with a Medicare Letter of Denial as well. JACQUELINE provided education that if she does not win the appeal she will be responsible for the payment of patient's stay after tomorrow (07/13/18). Pt's daughter verbalized understanding. JACQUELINE will continue to follow-up. Addendum: 07/12/18 at 1456 by EMILIO GARCIA At 1400: JACQUELINE placed call to [facility] and spoke with Nancy. JACQUELINE inquired with Nancy if patient will be placed in their Memory Care Unit or will be returning to her original apartment. Per Nancy, since the patient is diagnosed with Dementia, she will likely need to be placed in the Memory Care. Nancy reported that she will speak with her Kiln Car Repairer, Zach, to clarify. JACQUELINE asked Nancy to contact pt's daughter, Sandy to provide reassurance about the readmission process. At 1450: JACQUELINE received call from Nancy at [facility]. Nancy reports that she spoke with their Adminstrator, Zach, who states that the patient will need an assessment prior to pt returning to their facility. JACQUELINE informed Nancy of patient's likely discharge of tomorrow (07/13/18), and Nancy stated that she will be at the hospital to assess the patient in the morning between 8:30-9am. JACQUELINE will continue to follow-up. Addendum: 07/12/18 at 1619 by EMILIO GARCIA At 1600: JACQUELINE placed call to patient's daughterSandy to inform her about pt's assessment by her facility tomorrow morning. Daughter verbalized understanding and agreement. Daughter still requesting to speak with Dr. Whittaker about her disagreement with patient's discharge. JACQUELINE alerted Dr. Whittaker. JACQUELINE educated daughter that Medicare Letter of Denial will be left a nursing station for her to sign to acknowledge that she received the letter. Daughter verbalized understanding. SW informed daughter that she has right to appeal discharge when there is an official discharge order, and that she is to call [facility] when that happens. Daughter verbalized understanding. SW left the Medicare Letter of Denial with breast worker, Danilo Carrasco to have daughter sign when she visits the patient this evening during visiting hours. SW will continue to follow-up.
--- NOTE | 2018-07-12 14:58 | NUR ---
Firearms Report: JACQUELINE completed and submitted [employer] Firearms Report for 5250 GD certification.
[2018-07-12 15:35] VITALS: BP 117/56
[2018-07-12 20:00] VITALS: BP 119/56
--- NOTE | 2018-07-12 20:00 | NUR ---
RECEIVED PATIENT IN HER ROOM, SITTING IN HER CHAIR. A/O X 1. ABLE TO AMBULATE WITH STEADY GAIT AND ABLE TO MAKE HER NEEDS KNOWN.SHE IS NOTED ISOLATIVE, WITHDRAWN, POOR HISTORIAN. FORGETFUL. DENIES SI/AH/VH. SHE STATED, "I AM WAITING FOR MY DAUGHTER". PATIENT WAS REASSURED AND REDIRECTED. HOWEVER, SHE STATED THAT SHE WAS WAITING FOR HER DAUGHTER BECAUSE SHE WAS SUPPOSED TO PICK HER UP TONIGHT. PATIENT WAS REASSURED FOR HER SAFETY. PT DENIES PAIN. V/S STABLE AT THIS TIME. WILL CONTINUE TO MONITOR.
--- NOTE | 2018-07-12 21:00 | NUR ---
PATIENT HAD FEW SNACKS. COMPLIANT WITH MEDICATION.
[2018-07-12] MEDS: MIRTAZAPINE 15 MG TABLET PO SCH (21:08)
[2018-07-12] MEDS: risperiDONE 1 MG TABLET PO SCH (21:08)
[2018-07-12] MEDS: MELATONIN 3 MG TABLET PO SCH (22:11)
[2018-07-13] MEDS: PANTOPRAZOLE SODIUM 40 MG TABLET.DR PO SCH (06:59)
[2018-07-13] MEDS: LEVOTHYROXINE SODIUM 50 MCG TABLET PO SCH (06:59)
[2018-07-13 07:30] VITALS: BP 138/58
[2018-07-13] MEDS: risperiDONE 1 MG TABLET PO SCH ×2 (08:28→20:44)
[2018-07-13] MEDS: MULTIVITAMINS,THERAPEUTIC TABLET PO SCH (08:28)
[2018-07-13] MEDS: DOCUSATE SODIUM 100 MG CAPSULE PO SCH ×2 (08:28→16:13)
[2018-07-13] MEDS: RIVASTIGMINE TARTRATE 1.5 MG CAPSULE PO SCH ×2 (08:28→20:43)
[2018-07-13] MEDS: CHOLECALCIFEROL 1,000 UNIT TABLET PO SCH (08:28)
[2018-07-13] MEDS: ACETAMINOPHEN 325 MG TABLET PO SCH ×3 (08:28→16:13)
[2018-07-13] MEDS: ACYCLOVIR 200 MG CAPSULE PO SCH ×2 (08:29→20:43)
[2018-07-13] MEDS: PSYLLIUM SEED PACKET PO SCH (08:30)
[2018-07-13] MEDS: MEGESTROL ACETATE 20 MG TABLET PO SCH ×2 (08:30→16:13)
[2018-07-13] MEDS: FERROUS GLUCONATE 324 MG TABLET PO SCH ×2 (08:31→17:01)
[2018-07-13] MEDS: FLUTICASONE PROP NASAL SPRAY 16 GM BOTTLE NS SCH (08:31)
[2018-07-13] MEDS: CULTURELLE CAPSULE PO SCH ×2 (08:31→20:43)
--- NOTE | 2018-07-13 10:12 | NUR ---
Discharge Planning Note: At 0900: MEJIA Cruz from pt's [facility], came to assess the patient today ([phone]). SW provided Nancy with patient's updated medication list and updated Physician's Report. Per Nancy, the patient will be accepted to their Memory Care Unit. At 0930: SW placed call to patient's daughter, Sandy ([phone]) to discuss discharge planning. Daughter reported that she spoke with Dr. Whittaker last night (07/12/18). SW provided opportunity for pt's daughter to express concern and ventilate feelings. SW provided active listening and supportive counseling to pt's daughter. SW provided reassurance that the patient will be given adequate support upon discharge. Pt's daughter expressed relief and gratitude. SW informed daughter that pt was accepted to the Memory Care Unit at her [facility] ([facility]), and daughter expressed relief. SW informed daughter that patient is likely going to be discharged tomorrow (07/14/18), and daughter verbalized understanding. SW inquired if she would still want to exercise her rights to appeal the discharge, and daughter declined. Daughter reported that she and the family will be able to warehouse picker the patient tomorrow and provide transportation back to the [facility]. Daughter inquired about Home Health for the patient and inquired about outpatient psychiatry. SW informed daughter that this field underwriter will be contacting [employer] to arrange these supports for the patient. Plan: SW and daughter will speak on phone later today when Home Health and Psychiatry have been arranged for the patient. SW will continue to follow-up.
[2018-07-13 10:23] LABS: BASOPHILS % (AUTO) 0.2 % (0.0-2.0); EOSINOPHILS # (AUTO) 0.1 K/uL (0.0-0.7); HEMATOCRIT 36.5 % (31.2-41.9); HEMOGLOBIN 11.9 g/dL (10.9-14.3); LYMPHOCYTES # (AUTO) 1.2 K/uL (20.0-40.0); LYMPHOCYTES % (AUTO) 10.9 % (20.5-51.5); MEAN CORPUSCULAR HEMOGLOBIN 31.8 uug (24.7-32.8); MEAN CORPUSCULAR HGB CONC 33 g/dL (32.3-35.6); MEAN CORPUSCULAR VOLUME 97.7 fL (75.5-95.3); MONOCYTES # (AUTO) 1.3 K/uL (2.0-10.0); NEUTROPHILS # (AUTO) 8.5 K/uL (1.8-8.9); NEUTROPHILS % (AUTO) 75.9 % (38.5-71.5); PLATELET COUNT (AUTO) 238 K/uL (179-408); RED BLOOD CELL COUNT(AUTO) 3.73 MIL/uL (3.63-4.92); WHITE BLOOD COUNT (AUTO) 11.1 K/uL (3.8-11.8)
--- NOTE | 2018-07-13 10:26 | NUR ---
UR Note: farmworker livestock called and gave verbal clinicals to [employer] Stock Taker, Stacey (ph. [phone] [id number]). AUTH# [id number]. JACQUELINE informed Stacey about patient's upcoming discharge tomorrow (07/14/18) and inquired about Home Health, as well as Psychiatry follow-up, for the patient. Awaiting further authorization. farmworker livestock will continue to follow-up.
[2018-07-13 10:28] LABS: CARBON DIOXIDE 33 mmol/L (21-32); CHLORIDE 98 mmol/L (98-107); CREATININE 1.3 mg/dL (0.6-1.3); GLUCOSE 100 mg/dL (74-106); POTASSIUM 4.4 mmol/L (3.5-5.1); UREA NITROGEN, BLOOD 44 mg/dL (7-18)
--- NOTE | 2018-07-13 10:43 | NUR ---
patients family concern on the previous labs, informed Doctor, with orders made and carried out, will continue monitor
[2018-07-13] MEDS ORDERED: IV NORMAL SALINE 500 ML IV ONE (14:45)
[2018-07-13 16:16] VITALS: BP 140/54
--- NOTE | 2018-07-13 19:30 | NUR ---
During rounds patient is in bed, AAO, no complaints made. Denies SI. Encouraged oral intake. NAD noted.
[2018-07-13 20:00] VITALS: BP 145/59
[2018-07-13] MEDS: MIRTAZAPINE 15 MG TABLET PO SCH (20:44)
[2018-07-13] MEDS: MELATONIN 3 MG TABLET PO SCH (20:44)
--- NOTE | 2018-07-13 23:30 | NUR ---
Ambulated to the BR with walker. Voided without difficulty.
--- NOTE | 2018-07-14 06:00 | NUR ---
Slept well during the night. With episode of disorientation; reoriented PRN. Calm and cooperative.
[2018-07-14] MEDS: LEVOTHYROXINE SODIUM 50 MCG TABLET PO SCH (06:11)
[2018-07-14] MEDS: PANTOPRAZOLE SODIUM 40 MG TABLET.DR PO SCH (06:11)
[2018-07-14 07:30] VITALS: BP 114/54
[2018-07-14] MEDS: RIVASTIGMINE TARTRATE 1.5 MG CAPSULE PO SCH (09:44)
[2018-07-14] MEDS: DOCUSATE SODIUM 100 MG CAPSULE PO SCH (09:44)
[2018-07-14] MEDS: risperiDONE 1 MG TABLET PO SCH (09:45)
[2018-07-14] MEDS: MULTIVITAMINS,THERAPEUTIC TABLET PO SCH (09:45)
[2018-07-14] MEDS: ACETAMINOPHEN 325 MG TABLET PO SCH ×2 (09:45→13:17)
[2018-07-14] MEDS: FERROUS GLUCONATE 324 MG TABLET PO SCH (09:46)
[2018-07-14] MEDS: CHOLECALCIFEROL 1,000 UNIT TABLET PO SCH (09:46)
[2018-07-14] MEDS: MEGESTROL ACETATE 20 MG TABLET PO SCH (09:46)
[2018-07-14] MEDS: CULTURELLE CAPSULE PO SCH (09:46)
[2018-07-14] MEDS: ACYCLOVIR 200 MG CAPSULE PO SCH (09:47)
[2018-07-14] MEDS: PSYLLIUM SEED PACKET PO SCH (09:47)
[2018-07-14] MEDS: FLUTICASONE PROP NASAL SPRAY 16 GM BOTTLE NS SCH (09:56)
--- NOTE | 2018-07-14 10:23 | NUR ---
DC Note: Patient will be discharged back to her Assisted Living Facility, [facility] [[address] [place] [id number]; [phone]] via private transportation at 2pm. Spoke with Diaz at the facility who state they are ready to accept the patient today. Spoke with patients daughter, Sandy ([phone]) who will pick-up the patient and is aware and agreeable with discharge plans. Patient is alert and oriented x2 and is cooperative. Patient will continue to follow-up with her Primary Care Physician, Dr. Francy Wilson [p. [phone]] who follows the patient at the facility. JACQUELINE spoke with Jay Jay Ibarra Pit Crane Operator, ([phone] [id number]) who states that the patient will be receiving a referral to their Case Management department to arrange outpatient Psychiatry appointments for the patient. A Home Health order for Physical Therapy, Occupational Therapy, and Medication Management was faxed to [facility], at the request of the family (ph. [phone]; f [phone]). Spoke with Marge in intake, and JACQUELINE is awaiting response from [facility] at this time. Patient was referred to [facility] ([phone]) where patient can walk-in from 9am-6pm Wednesday through Wednesday; [facility] Crisis Line ([phone]) and the National Suicide Prevention Lifeline (301-646-5183). Addendum: 07/14/18 at 1118 by EMILIO GARCIA JACQUELINE received call back from Marge at [facility] who states that they can accept the patient with a start of care on 07/16/18.
--- NOTE | 2018-07-14 13:44 | NUR ---
Gps/Conservation Science Teacher- For discharged today this afternoon back to [facility] , patient's daughter Sandy to provide transportation. Reviewedmediciations, prescriptions, diet, safety, skin care , follow up with her primary medicial Doctor after discharged, verbalized understanding. Denies S.I. no H.I. cooperative with staff, increased orientations noted.
--- NOTE | 2018-07-14 14:04 | NUR ---
PRESCRIPTION MEDICATIONS WERE FAXED TO [facility] ([phone])
--- NOTE | 2018-07-14 15:03 | NUR ---
Gps/Senior Accounting Manager- Patient's daughter Sandy in to picking crew supervisor patient, reviewed mediciations and prescript , diet, safety, skin care, will f/u with her PCP after discharged. Informed daughter RX was already faxed to their pharmacy. All belongings was given back to patient. No new complaints noted. Discharged to [facility].
--- NOTE | 2018-07-14 15:07 | NUR ---
Gps/Extrusion Press Adjuster- All belongings returned back to patient including her rolling walker.
== END 2018-07-14 14:30 | disposition home health service (06) | DRG 885 ==
LOC: ER 18:50 → GPS 21:01
PROVIDERS: ADMIT Psychiatry & Neurology Psychiatry; ATTEND Nurse Practitioner Acute Care
DX: F23 Brief psychotic disorder (principal); E85.9 Amyloidosis, unspecified; J98.11 Atelectasis; F32.9 Major depressive disorder, single episode, unspecified; Z85.79 Personal history of other malignant neoplasms of lymphoid, hematopoietic and related tissues; Z98.1 Arthrodesis status; Z79.899 Other long term (current) drug therapy; I70.0 Atherosclerosis of aorta; E03.9 Hypothyroidism, unspecified; K21.9 Gastro-esophageal reflux disease without esophagitis; I49.3 Ventricular premature depolarization; F03.90 Unspecified dementia, unspecified severity, without behavioral disturbance, psychotic disturbance, mood disturbance, and anxiety
CPT/HCPCS: 36415; 71045; 84443; 85025; 87086; 93005; A4663; J3535; J7040